=== PATIENT | female | born 2000 | race Two or more races ===

== ENCOUNTER 2025-05-29 15:34 | Emergency (ER) | payer OTHER, SELFPAY ==
[2025-05-29 16:09] VITALS: BP 113/74; PULSE 68; RESP 16; TEMP 36.7; O2SAT 98; BMI 29.1
--- NOTE | 2025-05-29 17:24 | ED.GENADULT ---
HPI - General Adult General Chief complaint: Headache/Migraine Stated complaint: sent from clinic/ Headache Time Seen by Provider: 05/29/25 17:24 History of Present Illness HPI narrative: official court interpreter Ipad used in triage. Pt reports on she fainted/passed out at work, this was witnessed by coworkers of shaking lasting approx 10-15 mins. Pt states she was confused for approx 1 hour after this event. Pt did have some injury to her lip/mouth from this. Pt reports ongoing headache and dizziness since this episode. Pt states she has had episodes like this intermittently over the last decade. Some years, these episodes would happen daily. Pt reports she was not diagnosed with any medical condition but these episodes had subsided for the last few years. -Date of Onset of Symptoms 05/15 24-year-old woman presenting to the emergency department following apparent syncopal event at work. No history of seizures but was apparently confused for about an hour after this. There was not a head injury. Observed shaking apparently lasted possibly 10 minutes. Did hurt her upper right lip. Dentition feels intact. She describes herself as rather preoccupied or anxious I think would be a better translation. And can have these episodes periodically. This been going on over the last 4 years. Never had any imaging. She has describing tension in her posterior neck and has a band across her forehead currently. This morning she did have some it dizziness but that has subsided. Admittedly if she had had that episode this morning she would not be here necessarily. Headache is not so severe. Sounds like she did try treatment with acetaminophen. She would accept some medicine for this headache though. Has never had any imaging. Has had these episodes over the last 4+ years. Never really been evaluated. No head imaging. EKG or other. Denies a seizure disorder per prior evaluation. History of anemia. History of irregular menses every month or 2 but not particularly heavy. Related Data Home Medications ?Medication ?Instructions ?Recorded ?Confirmed No Known Home Medications 05/29/25 05/29/25 Allergies Allergy/AdvReac Type Severity Reaction Status Date / Time No Known Drug Allergies Allergy Verified 05/29/25 16:20 Review of Systems Status of ROS: Reports: 6 or more systems reviewed and unremarkable except as noted in History and below Exam Narrative: Exam Narrative: Pleasant. Quite calm. NAD. Speaking fluidly easily. Cranial nerves 2-12 intact. Head is atraumatic other than slightly puffy right upper lip. Dentition looks intact. This membranes are moist and without unusual pallor. Neck is supple some mild tenderness in the occipital insertion of the musculature bilaterally. Back nontender. Lungs are clear. Heart in regular rate and rhythm without murmur rub or gallop. Abdomen is soft and nontender without apparent mass. Moving all extremities without difficulty. Good strength. Extremities are without edema. Const: Vital Signs, click to edit/add: Vital Signs - 24 hr 05/29/25 16:09 Temperature 98.1 F Pulse Rate [Pulse Oximeter] 68 Respiratory Rate 16 Blood Pressure [Ri ght Upper Arm] 113/74 Pulse Oximetry 98 Oxygen Delivery Me thod Room Air Documenting provider has reviewed patient's vital signs: yes Course Vital Signs Vital signs: Initial Vital Signs Temperature 98.1 F 05/29/25 16:09 Temperature Source Temporal Artery Scan 05/29/25 16:09 Pulse Rate 68 05/29/25 16:09 Respiratory Rate 16 05/29/25 16:09 Blood Pressure 113/74 05/29/25 16:09 Blood Pressure Mean 87 05/29/25 16:09 Blood Pressure Position Sitting 05/29/25 16:09 Pulse Oximetry 98 05/29/25 16:09 Oxygen Delivery Method Room Air 05/29/25 16:09 Vital Signs Temperature 98.1 F 05/29/25 16:09 Pulse Rate 68 05/29/25 16:09 Respiratory Rate 16 05/29/25 16:09 Blood Pressure 113/74 05/29/25 16:09 Pulse Oximetry 98 05/29/25 16:09 Oxygen Delivery Method Room Air 05/29/25 16:09 Temperature 98.1 F 05/29/25 16:09 Pulse Rate 68 05/29/25 16:09 Respiratory Rate 16 05/29/25 16:09 Blood Pressure 113/74 05/29/25 16:09 Pulse Oximetry 98 05/29/25 16:09 Oxygen Delivery Method Room Air 05/29/25 16:09 Medications Administered Medications: Discontinued Medications Generic Name Dose Route Start Last Admin Trade Name Freq PRN Reason Stop Dose Admin Ketorolac Tromethamine 10 mg 05/29/25 18:20 05/29/25 18:28 Ketorolac 10 Mg Tablet PO 05/29/25 18:21 10 mg ONCE ONE Administration Medical Decision Making [facility] Narrative Medical decision making narrative: Differential does include seizure-like disorder although it sounds as though for return other this was thought not to be the case. She might be experiencing these events related to stress otherwise. This might be a vasovagal? Anemia? On exam would not appear to be anemic. Related to dysrhythmia? Related to history of headache? Hydrocephalus? Intracranial mass? Location of headache would suggest tension relationship. No history otherwise of exercise intolerance to suggest cardiac etiology. Discussed options for evaluation and symptom relief. Is a little reluctant to receive IV fluids for access but would if absolutely necessary. Proposed oral treatment at this point. Settled on tablet of 10 mg of ketorolac. Since has never been done, will do a CT scan of her head as well Noncontrast CT scan of by me looks to be without acute abnormality and head with normal ventricles without evidence of hydrocephalus. Understandably limited in head CT but mass lesion appreciated. INDICATION: Recurrent headaches. TECHNIQUE: CT of the head without contrast. Coronal and sagittal reformats are included. COMPARISON: None. FINDINGS: No CT evidence of acute cortical infarct. No loss of briseno white matter differentiation. No hyperdense vessels to suggest intracranial thrombus. No acute intracranial hemorrhage. No mass effect or midline shift. No hydrocephalus or extra-axial collections. White matter is within normal limits for age. No acute osseous abnormalities. Mastoid air cells and paranasal sinuses are clear. Normal soft tissues. IMPRESSION: IMPRESSION:1. No CT evidence of acute cortical infarct. No acute intracranial hemorrhage. No other acute intracranial findings. Please note that all CT scans at this facility use dose modulation, iterative reconstruction, and/or weight-based dosing when appropriate to reduce radiation dose to as low as reasonably achievable. Dictated by Raymond Marc MD @ 05/29/2025 7:05:20 PM EKG is unremarkable. On reassessment following treatment with tablet ketorolac, is improved. She feels she can rest. Still may have seizure disorder or perhaps unexplained syncopal events requiring further workup. EKG does not suggest cardiac etiology. See patient discharge plan for further discussion You received an ibuprofen like medication here today called ketorolac. I am happy this has seemed to help you. If needed for headaches here and there can take up to 800 mg of ibuprofen or to 1000 mg of acetaminophen per dose. I think you have some muscle tension in your neck contributing to the headache that you had here. See if you can get somebody to massage your neck and shoulders. Multiple times over the day over this next week do gentle pull down stretches as I demonstrated to stretch out your neck. You may also have a concussion. Signs or symptoms of a concussion might be nausea or headache upon exertion which can also be an indication to back off that level of activity and reassess in a week.? Concussion can also be represented by smoldering nausea or smoldering headache, difficulty with concentration, mood lability, general somnolence, sense of persistent fog or dizziness/lightheadedness.? If these symptoms are becoming apparent and continuing beyond 7-10 days, be re-evaluated for further recommendations. Have included some information for [facility]. This is a free or discounted clinic where you can receive further healthcare. ECG Data Attestation: I personally reviewed and interpreted this ECG as follows: (Normal sinus rhythm. Rate of 62) Discharge Plan Discharge Clinical Impression: Tension headache, Closed head injury, Syncope Patient Disposition: Home w/ Parent or Adult Condition: Improved Additional Instructions: You received an ibuprofen like medication here today called ketorolac. I am happy this has seemed to help you. If needed for headaches here and there can take up to 800 mg of ibuprofen or to 1000 mg of acetaminophen per dose. I think you have some muscle tension in your neck contributing to the headache that you had here. See if you can get somebody to massage your neck and shoulders. Multiple times over the day over this next week do gentle pull down stretches as I demonstrated to stretch out your neck. You may also have a concussion. Signs or symptoms of a concussion might be nausea or headache upon exertion which can also be an indication to back off that level of activity and reassess in a week.? Concussion can also be represented by smoldering nausea or smoldering headache, difficulty with concentration, mood lability, general somnolence, sense of persistent fog or dizziness/lightheadedness.? If these symptoms are becoming apparent and continuing beyond 7-10 days, be re-evaluated for further recommendations. Have included some information for [facility]. This is a free or discounted clinic where you can receive further healthcare. Hoy le recetaron un medicamento similar al ibuprofeno llamado ketorolaco. Me alegra que le haya sido de ayuda. Si necesita alivio para los berta de lakisha ocasionales, puede lili hasta 800 mg de ibuprofeno o hasta 1000 mg de paracetamol por dosis. Creo que tiene tensi?n muscular en el pk, lo que contribuye al dolor de lakisha que experiment?. Intente que alguien le d? un masaje en el pk y los hombros. Jairo la pr?xima semana, realice estiramientos suaves hacia abajo varias veces al d?a, darcie le mostr?, para estirar el pk. Tambi?n podr?a tener fatimah conmoci?n cerebral. Los signos o s?ntomas de fatimah conmoci?n cerebral pueden incluir n?useas o dolor de lakisha al realizar esfuerzo f?sico, lo que tambi?n puede ser fatimah indicaci?n para reducir el nivel de actividad y reevaluar la situaci?n en fatimah semana. La conmoci?n cerebral tambi?n puede manifestarse darcie n?useas o dolor de lakisha persistentes, dificultad para concentrarse, cambios de humor, somnolencia general, sensaci?n de confusi?n mental o mareos. Si estos s?ntomas se presentan y persisten jairo m?s de 7 a 10 d?as, consulte con un m?dico para obtener m?s recomendaciones. He incluido informaci?n sobre [facility]. Se trata de fatimah cl?zahra que ofrece servicios de atenci?n m?dica gratuitos o con descuento. Prescriptions: No Action No Known Home Medications Follow Up/Referrals: Provider,Not a Local [Primary Care Provider, Family Practice] Stand Alone Forms: [facility] Info Instructions
--- NOTE | 2025-05-29 18:20 | CRLHL7_ITS ---
For Patients: As a result of the Century Cures Act, medical imaging exams and procedure reports are released immediately into your electronic medical record. You may view this report before your referring provider. If you have questions, please contact your health care provider. INDICATION: Recurrent headaches. TECHNIQUE: CT of the head without contrast. Coronal and sagittal reformats are included. COMPARISON: None. FINDINGS: No CT evidence of acute cortical infarct. No loss of briseno white matter differentiation. No hyperdense vessels to suggest intracranial thrombus. No acute intracranial hemorrhage. No mass effect or midline shift. No hydrocephalus or extra-axial collections. White matter is within normal limits for age. No acute osseous abnormalities. Mastoid air cells and paranasal sinuses are clear. Normal soft tissues. IMPRESSION: IMPRESSION:1. No CT evidence of acute cortical infarct. No acute intracranial hemorrhage. No other acute intracranial findings. Please note that all CT scans at this facility use dose modulation, iterative reconstruction, and/or weight-based dosing when appropriate to reduce radiation dose to as low as reasonably achievable. Dictated by Raymond Marc MD @ 05/29/2025 7:05:20 PM (Electronically Signed)
[2025-05-29] MEDS: KETOROLAC 10 MG TABLET PO (18:28)
== END 2025-05-29 20:22 | disposition home or self-care (01) ==
PROVIDERS: Emergency Provider Family Medicine
DX: G44.209 Tension-type headache, unspecified, not intractable (principal); R55 Syncope and collapse; S09.90XA Unspecified injury of head, initial encounter; W18.39XA Other fall on same level, initial encounter
CPT/HCPCS: 70450; 93005; 99284; A9270